=== PATIENT | male | born 1970 | race Caucasian/White ===

== ENCOUNTER 2024-08-19 06:32 | Day surgery (SDC) | payer BC ==
[2024-08-19] MEDS ORDERED: Lactated Ringers 1,000 ML IV ONE (07:00)
[2024-08-19] MEDS: Lactated Ringers 1,000 ML IV SCH (07:15)
[2024-08-19] MEDS ORDERED: propofoL IV ONE ×2 (07:52→07:54)
[2024-08-19] MEDS ORDERED: Versed 2 MG/2 ML Injection ONE (07:52)
[2024-08-19 08:53] VITALS: RESP 20
[2024-08-19 09:09] VITALS: BP 136/93; PULSE 63; TEMP 97.6; O2SAT 99
--- NOTE | 2024-08-22 08:21 | OP ---
SURGERY DATE/TIME: 08/19/2024 [id number] PREOPERATIVE DIAGNOSIS: History of dysphagia and screening colon exam. POSTOPERATIVE DIAGNOSIS: Moderate gastritis and sigmoid diverticulosis. PROCEDURE: Esophagogastroduodenoscopy with cold forceps biopsy and colonoscopy. SURGEON: Travis Vanessa MD. ANESTHESIA: Medications given by the anesthesia department. INDICATIONS: The patient is a 53-year-old white male patient reporting that he has had history of food boluses getting stuck in his esophagus. He also is here for screening colon exam. The patient was felt the need to have endoscopic evaluation. He was apprised of the risks of the procedure including risks of perforation, phlebitis, untoward reaction to medication, bleeding, and missed lesions. The patient verbalized his understanding and desire to have procedure performed. DESCRIPTION OF PROCEDURE AND FINDINGS: The patient was given medication by the anesthesia department. He had continuous pulse oximetry, ECG monitoring, and intermittent blood pressure monitoring during the examination. He was placed in the left lateral decubitus position. A bite block was placed, and a flexible Olympus gastroscope was used to intubate the oropharynx. The view of the larynx was obtained and was normal. Scope was easily introduced into the esophagus which appeared to be normal throughout its length. The stomach was entered where normal gastric rugal folds were seen. There did appear to be a moderate erythema throughout the stomach. The scope was passed along the greater curvature of the stomach to the antrum. Pylorus was encountered and intubated. Duodenum was inspected and found to be normal. Scope was withdrawn towards the stomach again. Retroflexed view was obtained of the lesser curvature, fundus, and cardia regions of the stomach, and these appeared to be essentially normal. The scope was then redirected towards the gastric antrum and biopsies were obtained using to rule out the presence of Helicobacter pylori-type organisms. The scope was then removed from the patient. Next, a digital rectal examination was performed and revealed normal anal sphincter tone, no masses, and a normal prostate. The flexible pediatric colonoscope was used to intubate the rectum. A view of the colon was developed sequentially to the cecum. Upon insertion and withdrawal was noted to be moderate sigmoid diverticulosis with a lot of curvature in the lower sigmoid area making passage of the scope moderately difficult. No mucosal lesions were encountered otherwise. The scope was removed from the patient, who tolerated the procedure well and was sent back to outpatient recovery in good condition.
== END 2024-08-19 09:15 | disposition home or self-care (01) ==
LOC: SDC 06:32
PROVIDERS: ATTEND Family Medicine
DX: Z12.11 Encounter for screening for malignant neoplasm of colon (principal); Z87.19 Personal history of other diseases of the digestive system; K29.70 Gastritis, unspecified, without bleeding; K57.30 Diverticulosis of large intestine without perforation or abscess without bleeding
CPT/HCPCS: J2250; J2704